=== PATIENT | female | born 1985 | race Asian ===

== ENCOUNTER 2017-08-03 09:40 | Inpatient (IN) | payer SELFPAY ==
[~2017-08-03] VITALS: Ht 160 cm; Wt 61.2 kg
[2017-08-03] MEDS ORDERED: CEFAZOLIN 2 GM IVPB PREMIX 50 ML IV ONE ×2 (10:13→11:15)
[2017-08-03] MEDS ORDERED: LR 1,000 ML IV SCH (11:02)
[2017-08-03] MEDS ORDERED: CITRIC ACID/SODIUM CITRATE 30 ML UDC PO ONE (11:15)
[2017-08-03 11:36] LABS: BASOPHILS # (AUTO) 0.1 K/uL (0.0-0.2); BASOPHILS % (AUTO) 0.8 % (0.0-2.0); EOSINOPHILS # (AUTO) 0.1 K/uL (0.0-0.4); HEMOGLOBIN 10.9 g/dL (12.0-16.0); LYMPHOCYTES # (AUTO) 1.9 K/uL (1.0-5.5); MEAN CORPUSCULAR HEMOGLOBIN 32 pg (27-31); MEAN CORPUSCULAR HGB CONC 33 % (32-36); MEAN CORPUSCULAR VOLUME 95 fL (79.0-98.0); MONOCYTES # (AUTO) 0.6 K/uL (0.0-1.0); MONOCYTES % (AUTO) 5.9 % (1.7-9.3); NEUTROPHILS # (AUTO) 6.7 K/uL (1.8-7.7); NEUTROPHILS % (AUTO) 72.3 % (40.0-70.0); PLATELET COUNT (AUTO) 221 K/uL (130-430); RED BLOOD CELL COUNT(AUTO) 3.46 MIL/uL (4.2-6.2); RED CELL DISTRIBUTION WIDTH 13.2 % (9.0-15.0); WHITE BLOOD COUNT (AUTO) 9.4 K/uL (4.8-10.8)
[2017-08-03] MEDS ORDERED: fentaNYL CITRATE/PF 100 MCG/2 ML AMP IVP ONE (12:16)
[2017-08-03] MEDS ORDERED: TRIAMCINOLONE ACETONIDE 40 MG/ML IM ONE (12:16)
[2017-08-03] MEDS ORDERED: NORMAL SALINE 10 ML VIAL IVP ONE (12:16)
[2017-08-03] MEDS ORDERED: DEXAMETHASONE SOD PHOSPHATE 4 MG/ML VIAL IVP ONE (12:16)
[2017-08-03] MEDS ORDERED: OXYTOCIN 10 UNIT/ML VIAL IV ONE (12:16)
[2017-08-03] MEDS ORDERED: MORPHINE SULFATE 10MG/10ML PF AMP EP ONE (12:16)
[2017-08-03] MEDS ORDERED: NS IRRIG SOLN 1000 ML IR ONE (12:16)
[2017-08-03] MEDS ORDERED: LR 1,000 ML IV.SOLN IV ONE (12:16)
[2017-08-03] MEDS ORDERED: METOCLOPRAMIDE HCL 10 MG/2 ML VIAL IVP ONE (12:16)
[2017-08-03] MEDS ORDERED: OXYTOCIN/NORMAL SALINE 1,000 ML IV ONE ×2 (13:37→13:52)
[2017-08-03] MEDS ORDERED: MEASLES,MUMPS&RUBELLA VACC/PF 12500 UNIT/0.5 ML VIAL SUBQ PRN (14:00)
[2017-08-03] MEDS ORDERED: ANUSOL 1 EA SUPP.RECT (PREPARATION H) RC PRN (14:00)
[2017-08-03] MEDS ORDERED: LANOLIN 7 GM OINT. TP PRN (14:00)
[2017-08-03 15:39] VITALS: BP_SYST 103
[2017-08-03 17:29] VITALS: BP_SYST 103
[2017-08-03] MEDS: CEFAZOLIN 1 GM IVPB PREMIX 50 ML IV SCH (18:56)
[2017-08-03] MEDS ORDERED: TEMAZEPAM 15 MG CAPSULE PO PRN (21:00)
[2017-08-04] MEDS: DOCUSATE SODIUM 100 MG CAPSULE PO PRN ×2 (06:15→23:56)
[2017-08-04] MEDS: IBUPROFEN 600 MG TABLET PO SCH ×4 (06:15→23:55)
[2017-08-04] MEDS: SIMETHICONE 80 MG TAB.CHEW PO PRN ×3 (06:15→17:49)
[2017-08-04] MEDS: CEFAZOLIN 1 GM IVPB PREMIX 50 ML IV SCH ×2 (06:16)
[2017-08-04 07:12] LABS: BASOPHILS # (AUTO) 0.5 K/uL (0.0-0.2); EOSINOPHILS % (AUTO) 0.1 % (0.0-4.0); HEMATOCRIT 34.1 % (36-48); HEMOGLOBIN 11.6 g/dL (12.0-16.0); LYMPHOCYTES # (AUTO) 2.4 K/uL (1.0-5.5); LYMPHOCYTES % (AUTO) 14.5 % (20.5-51.5); MEAN CORPUSCULAR HEMOGLOBIN 32 pg (27-31); MEAN CORPUSCULAR HGB CONC 34 % (32-36); MEAN CORPUSCULAR VOLUME 94 fL (79.0-98.0); MONOCYTES % (AUTO) 5.9 % (1.7-9.3); NEUTROPHILS # (AUTO) 12.8 K/uL (1.8-7.7); NEUTROPHILS % (AUTO) 76.5 % (40.0-70.0); PLATELET COUNT (AUTO) 220 K/uL (130-430); RED BLOOD CELL COUNT(AUTO) 3.61 MIL/uL (4.2-6.2); RED CELL DISTRIBUTION WIDTH 13.6 % (9.0-15.0); WHITE BLOOD COUNT (AUTO) 16.7 K/uL (4.8-10.8)
[2017-08-04] MEDS: HYDROcodone/ACETAMIN 5-325 MG TAB (NORCO/ VICODIN) PO PRN ×2 (09:02→15:47)
[2017-08-04] MEDS: OXYCODONE/ACETAMINOPHEN 5-325 TABLET PO PRN (18:13)
[2017-08-04] MEDS: CEPHALEXIN 500 MG CAPSULE PO SCH ×2 (18:29→23:56)
[2017-08-05] MEDS: IBUPROFEN 600 MG TABLET PO SCH ×4 (05:53→23:51)
[2017-08-05] MEDS: CEPHALEXIN 500 MG CAPSULE PO SCH ×2 (05:54→12:53)
[2017-08-05] MEDS: OXYCODONE/ACETAMINOPHEN 5-325 TABLET PO PRN ×5 (07:10→22:31)
[2017-08-05] MEDS: NITROFURANTOIN MONOHYD/M-CRYST 100 MG CAPSULE PO SCH (17:48)
[2017-08-05] MEDS: DOCUSATE SODIUM 100 MG CAPSULE PO PRN (22:32)
[2017-08-06] MEDS: OXYCODONE/ACETAMINOPHEN 5-325 TABLET PO PRN ×3 (03:52→14:00)
[2017-08-06] MEDS: NITROFURANTOIN MONOHYD/M-CRYST 100 MG CAPSULE PO SCH ×2 (05:50→05:55)
[2017-08-06] MEDS: IBUPROFEN 600 MG TABLET PO SCH ×3 (05:50→12:15)
== END 2017-08-06 14:36 | disposition home or self-care (01) | DRG 765 ==
LOC: OBSVTOIN 09:40 → SPU 09:40
PROVIDERS: ADMIT Obstetrics & Gynecology; ATTEND Obstetrics & Gynecology
PROC: 10D00Z1 Extraction of Products of Conception, Low, Open Approach (ICD-10-PCS; principal; 2017-08-03 12:00)
DX: O36.63X0 Maternal care for excessive fetal growth, third trimester, not applicable or unspecified (principal); O75.3 Other infection during labor; N39.0 Urinary tract infection, site not specified; Z37.0 Single live birth; Z3A.39 39 weeks gestation of pregnancy
CPT/HCPCS: 36415; 85025; 86886; 86900; 86901; 94760; J0690; J1100; J2274; J2590; J2765; J3010; J3301; J7120

== ENCOUNTER 2017-08-08 15:16 | Inpatient (IN) | payer SELFPAY ==
[~2017-08-08] VITALS: Ht 152.4 cm; Wt 59.0 kg
[2017-08-08 16:14] VITALS: BP_SYST 118
[2017-08-08 16:28] VITALS: BP_SYST 118
[2017-08-08] MEDS ORDERED: D5LR 1,000 ML IV SCH (16:45)
[2017-08-08] MEDS ORDERED: MORPHINE 4 MG/ML INJ. SYRINGE IVP PRN (16:45)
[2017-08-08 17:06] LABS: EOSINOPHILS # (AUTO) 0.1 K/uL (0.0-0.4); HEMOGLOBIN 12.2 g/dL (12.0-16.0); MEAN CORPUSCULAR HEMOGLOBIN 32 pg (27-31); MEAN CORPUSCULAR HGB CONC 34 % (32-36); MEAN CORPUSCULAR VOLUME 94 fL (79.0-98.0)
[2017-08-08 17:12] LABS: BASOPHILS # (AUTO) 0.2 K/uL (0.0-0.2); BASOPHILS % (AUTO) 2.4 % (0.0-2.0); EOSINOPHILS % (AUTO) 0.8 % (0.0-4.0); HEMATOCRIT 35.9 % (36-48); LYMPHOCYTES # (AUTO) 1.3 K/uL (1.0-5.5); LYMPHOCYTES % (AUTO) 12.1 % (20.5-51.5); MONOCYTES # (AUTO) 0.7 K/uL (0.0-1.0); MONOCYTES % (AUTO) 7.1 % (1.7-9.3); NEUTROPHILS # (AUTO) 8.1 K/uL (1.8-7.7); NEUTROPHILS % (AUTO) 77.6 % (40.0-70.0); PLATELET COUNT (AUTO) 282 K/uL (130-430); RED BLOOD CELL COUNT(AUTO) 3.81 MIL/uL (4.2-6.2); RED CELL DISTRIBUTION WIDTH 13.2 % (9.0-15.0); WHITE BLOOD COUNT (AUTO) 10.4 K/uL (4.8-10.8)
[2017-08-08] MEDS ORDERED: DIATR MEGLU/DIATRIZ SOD 30 ML SOLUTION PO ONE (17:17)
[2017-08-08 17:28] LABS: ALBUMIN 2.8 g/dL (3.4-4.8); CALCIUM 8.1 mg/dL (8.4-11.0); CREATININE 3.03 mg/dL (0.55-1.30); POTASSIUM 4.3 mmol/L (3.5-5.1); TOTAL BILIRUBIN 0.3 mg/dL (0.0-1.0)
[2017-08-08] MEDS ORDERED: ACET325C PO (19:44)
[2017-08-08] MEDS ORDERED: cefTRIAXone 1 GM in D5W 50 ML IV SCH (21:00)
[2017-08-08] MEDS ORDERED: NA PHOS,M-B/NA PHOS,DI-BA 118 ML (FLEET ENEMA) RC ONE (21:45)
[2017-08-08] MEDS: NACL 0.9% 1,000 ML IV SCH (21:45)
[2017-08-08 23:58] LABS: BILIRUBIN,URINE NEGATIVE (NEGATIVE); BLOOD, URINE 3+ (NEGATIVE); CLARITY/URINE CLEAR (CLEAR); COLOR,URINE YELLOW (YELLOW); GLUCOSE,URINE NEGATIVE (NEGATIVE); KETONES,URINE NEGATIVE (NEGATIVE); LEUKOCYTE ESTERASE ,URINE NEGATIVE (NEGATIVE); NITRITE, URINE NEGATIVE (NEGATIVE); PH,URINE 5.5 (5.0-8.0); PROTEIN URINE NEGATIVE (NEGATIVE); UROBILINOGEN,URINE 0.2 (0.2-1.0)
[2017-08-09 00:16] LABS: BACTERIA,URINE FEW /HPF (None Seen); RBC,URINE 20-50 /HPF (0-3); WBC,URINE 0-3 /HPF (0-3)
[2017-08-09 08:28] VITALS: BP_SYST 115
[2017-08-09] MEDS: cefTRIAXone 1 GM in D5W 50 ML IV SCH (09:38)
[2017-08-09] MEDS ORDERED: BETHANECHOL CHLORIDE 10 MG TABLET (URECHOLINE) PO ONE (11:45)
[2017-08-09 11:48] VITALS: BP_SYST 100
[2017-08-09] MEDS ORDERED: BETHANECHOL CHLORIDE 25 MG TABLET (URECHOLINE) PO ONE ×2 (12:30→16:45)
[2017-08-09 13:50] LABS: ALBUMIN 2.7 g/dL (3.4-4.8); CALCIUM 8.2 mg/dL (8.4-11.0); CREATININE 0.94 mg/dL (0.55-1.30); TOTAL BILIRUBIN 0.3 mg/dL (0.0-1.0)
[2017-08-09 14:07] LABS: BILIRUBIN,URINE NEGATIVE (NEGATIVE); BLOOD, URINE 3+ (NEGATIVE); CLARITY/URINE CLEAR (CLEAR); COLOR,URINE YELLOW (YELLOW); GLUCOSE,URINE NEGATIVE (NEGATIVE); KETONES,URINE NEGATIVE (NEGATIVE); PROTEIN URINE 2+ (NEGATIVE)
[2017-08-09 14:08] LABS: LEUKOCYTE ESTERASE ,URINE 1+ (NEGATIVE); NITRITE, URINE NEGATIVE (NEGATIVE); UROBILINOGEN,URINE 0.2 (0.2-1.0)
[2017-08-09 14:22] LABS: BACTERIA,URINE MODERATE /HPF (None Seen); MUCUS,URINE 1+ /LPF (None Seen); RBC,URINE 20-50 /HPF (0-3); URINE AMORPHOUS URATE 1+ /HPF (None Seen)
[2017-08-09] MEDS ORDERED: BETHANECHOL CHLORIDE 10 MG TABLET (URECHOLINE) PO SCH (15:30)
[2017-08-09 16:02] VITALS: BP_SYST 95
[2017-08-09] MEDS ORDERED: LACTULOSE 20 GM/30 ML UDC PO ONE (16:45)
[2017-08-09] MEDS ORDERED: OXYCODONE/ACETAMINOPHEN 5-325 TABLET PO PRN (17:30)
[2017-08-09] MEDS: NACL 0.9% 1,000 ML IV SCH (18:09)
[2017-08-09 20:00] VITALS: BP_SYST 107
[2017-08-10] VITALS (7 sets, daily range): BP systolic 98–110
[2017-08-10 00:14] LABS: URINE SODIUM, RANDOM 45 mmol/L (40-220)
[2017-08-10] MEDS: NACL 0.9% 1,000 ML IV SCH (04:04)
[2017-08-10 07:06] LABS: CALCIUM 8.2 mg/dL (8.4-11.0); CREATININE 0.71 mg/dL (0.55-1.30); POTASSIUM 4.5 mmol/L (3.5-5.1)
[2017-08-10] MEDS: cefTRIAXone 1 GM in D5W 50 ML IV SCH (08:42)
[2017-08-10] MEDS ORDERED: BETHANECHOL CHLORIDE 25 MG TABLET (URECHOLINE) PO SCH (09:00)
[2017-08-10] MEDS ORDERED: LACTULOSE 20 GM/30 ML UDC PO SCH (09:00)
== END 2017-08-10 17:45 | disposition home or self-care (01) | DRG 693 ==
LOC: SMU 15:18
PROVIDERS: ADMIT Obstetrics & Gynecology; ATTEND Obstetrics & Gynecology
DX: N13.30 Unspecified hydronephrosis (principal); E43 Unspecified severe protein-calorie malnutrition; N17.9 Acute kidney failure, unspecified; N39.0 Urinary tract infection, site not specified; K56.41 Fecal impaction; N31.9 Neuromuscular dysfunction of bladder, unspecified; Z68.25 Body mass index [BMI] 25.0-25.9, adult
CPT/HCPCS: 36415; 80048; 80053; 81000-TC; 82570-TC; 83735-TC; 84302-TC; 85025; 87086; J0696; J2270; J7030; J7060; J7120; Q9964